=== PATIENT | female | born 1995 | race Caucasian/White ===

== ENCOUNTER 2021-10-10 12:53 | Emergency (ER) | payer MEDICAID ==
[~2021-10-10] VITALS: Ht 157.5 cm; Wt 71.0 kg
[2021-10-10 13:04] VITALS: BP 129/79
[2021-10-10] MEDS ORDERED: DICL500C MT (14:27)
== END 2021-10-10 15:05 | disposition home or self-care (01) ==
LOC: ER 14:51
DX: N61.0 Mastitis without abscess (principal)
CPT/HCPCS: 99282; 99283